=== PATIENT | female | born 2000 | race American Indian/Alaskan Native ===

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

== ENCOUNTER 2022-11-07 18:08 | Emergency (ER) | payer OTHER ==
[2022-11-07] MEDS ORDERED: Cephalexin 500 MG Cap PO ONE ×2 (18:09→20:04)
[2022-11-07] MEDS ORDERED: Acetaminophen 325 MG Tab PO ONE (20:03)
[2022-11-07 20:15] VITALS: BP 124/67; PULSE 94
[2022-11-07] MEDS ORDERED: Cephalexin 500 MG Cap ONE (20:22)
== END 2022-11-07 20:29 | disposition home or self-care (01) ==
LOC: DL.ED 18:08
DX: O23.41 Unspecified infection of urinary tract in pregnancy, first trimester (principal); N39.0 Urinary tract infection, site not specified; O99.891 Other specified diseases and conditions complicating pregnancy; M54.50 Low back pain, unspecified; Z3A.11 11 weeks gestation of pregnancy
CPT/HCPCS: 81001; 99283; A9270

== ENCOUNTER 2023-06-04 01:11 | Inpatient (IN) | payer SELFPAY ==
[2023-06-04 08:55] LABS: HEMATOCRIT 28.7 % (37.0-47.0); HEMOGLOBIN 8.7 g/dL (12.0-16.0); MEAN CORPUSCULAR HEMOGLOBIN 22.1 pg (27.0-34.0); MEAN CORPUSCULAR HGB CONC 30.3 g/dL (33.0-35.0); RED BLOOD CELL COUNT 3.93 10^6/uL (4.2-5.4); WHITE BLOOD CELL COUNT,WBC 8.2 10^3/uL (5.0-10.0)
[2023-06-04 08:57] LABS: AMPHETAMINES,URINE NEGATIVE (NEGATIVE); BARBITURATES,URINE NEGATIVE (NEGATIVE); BENZODIAZEPINE,URINE NEGATIVE (NEGATIVE); MDMA (ECSTASY), URINE NEGATIVE (NEGATIVE); METHADONE,URINE NEGATIVE (NEGATIVE); METHAMPHETAMINES,URINE NEGATIVE (NEGATIVE); OPIATES,URINE NEGATIVE (NEGATIVE); OXYCODONE,URINE NEGATIVE (NEGATIVE); PHENCYCLIDINE,URINE NEGATIVE (NEGATIVE); TCA,URINE NEGATIVE (NEGATIVE)
[2023-06-04] MEDS ORDERED: Misoprostol 25 MCG (1/4 of 100 MCG) Tab VAG ONE (09:03)
[2023-06-04] MEDS ORDERED: Methylergonovine 0.2 MG/1 ML Amp IM PRN (09:18)
[2023-06-04] MEDS ORDERED: Acetaminophen 325 MG Tab PO PRN (09:18)
[2023-06-04] MEDS ORDERED: Lactated Ringers 1,000 ML IV ONE (09:18)
[2023-06-04] MEDS ORDERED: Lidocaine 1% 30 ML SDV INJECT ONE (09:18)
[2023-06-04] MEDS ORDERED: Sodium Chloride 0.9% 10 ML Syringe FLUSH PRN (09:18)
[2023-06-04] MEDS ORDERED: Ondansetron 4 MG/2 ML SDV IVPUSH PRN (09:18)
[2023-06-04] MEDS ORDERED: Misoprostol 400 MCG (4 X 100 MCG TAB) RECTAL PRN (09:18)
[2023-06-04] MEDS ORDERED: Carboprost Tromethamine 250 MCG/1 ML Amp IM PRN (09:18)
[2023-06-04] MEDS ORDERED: Tranexamic Acid 1,000 MG in Sodium Chloride 0.9% 100 ML IV PRN (09:18)
[2023-06-04] MEDS ORDERED: Lactated Ringers 1,000 ML IV SCH (09:30)
[2023-06-04] MEDS ORDERED: Oxytocin/Normal Saline 30 UNIT/500 ML BAG IV SCH (09:30)
[2023-06-04] MEDS: Misoprostol 25 MCG (1/4 of 100 MCG) Tab VAG PRN ×2 (13:28→17:17)
[2023-06-04] MEDS ORDERED: fentaNYL 100 MCG/2 ML SDV IVPUSH PRN (15:21)
[2023-06-04] MEDS ORDERED: Bupivacaine 0.25% 10 ML SDV ONE (22:11)
[2023-06-04] MEDS ORDERED: fentaNYL 100 MCG/2 ML SDV ONE (22:11)
[2023-06-04] MEDS ORDERED: ePHEDrine 50 MG/ML SDV IVPUSH PRN (22:49)
[2023-06-04] MEDS ORDERED: Phenylephrine HCl In 0.9% NaCl 1 MG/10 ML Syringe IVPUSH PRN (22:49)
[2023-06-04] MEDS ORDERED: Ropivacaine 200 MG in Premix Bag 1 BAG EPIDUR SCH (23:00)
[2023-06-05] MEDS ORDERED: Famotidine 20 MG Tab PO PRN (02:29)
[2023-06-05] MEDS ORDERED: Oxytocin 10 Units/1 ML SDV IM PRN (02:29)
[2023-06-05] MEDS ORDERED: Witch Hazel Medicated Pads 100/Jar TOP PRN (02:29)
[2023-06-05] MEDS ORDERED: Benzocaine/Menthol 20%-0.5% Spray 78 GM Cannister TOP PRN (02:29)
[2023-06-05] MEDS ORDERED: Simethicone 80 MG Tab.Chew PO PRN (02:29)
[2023-06-05] MEDS ORDERED: Aluminum Hydroxide/Magnesium Hydroxide/Simethicone Susp 30 ML Cup PO PRN (02:29)
[2023-06-05] MEDS: Ibuprofen 800 MG Tab PO PRN ×2 (03:00→13:50)
[2023-06-05] MEDS: Docusate Sodium 100 MG Cap PO PRN ×2 (08:30→20:40)
[2023-06-05] MEDS: Prenatal Multivitamin with Calcium/Folic Acid/Iron Tab PO SCH (08:30)
[2023-06-06] MEDS: Ibuprofen 800 MG Tab PO PRN (06:51)
[2023-06-06 06:54] LABS: HEMATOCRIT 24.8 % (37.0-47.0); HEMOGLOBIN 7.5 g/dL (12.0-16.0)
[2023-06-06] MEDS: Docusate Sodium 100 MG Cap PO PRN (07:42)
[2023-06-06] MEDS: Prenatal Multivitamin with Calcium/Folic Acid/Iron Tab PO SCH ×2 (07:42→11:25)
[2023-06-06] MEDS ORDERED: Measles, Mumps & Rubella Vaccine 0.5 ML SDV SUBCUT ONE (09:04)
[2023-06-06 09:20] VITALS: PULSE 82
[2023-06-06 11:03] VITALS: BP 128/74
== END 2023-06-06 10:45 | disposition home or self-care (01) | DRG 807 ==
LOC: DL.OB 01:11 → OBSVTOIN 06-05 01:11
PROVIDERS: ADMIT Student in an Organized Health Care Education/Training Program; ATTEND Student in an Organized Health Care Education/Training Program
PROC: 10E0XZZ Delivery of Products of Conception, External Approach (ICD-10-PCS; principal; 2023-06-05)
PROC: 0KQM0ZZ Repair Perineum Muscle, Open Approach (ICD-10-PCS; 2023-06-05)
PROC: 10907ZC Drainage of Amniotic Fluid, Therapeutic from Products of Conception, Via Natural or Artificial Opening (ICD-10-PCS; 2023-06-05)
PROC: 3E0R3BZ Introduction of Anesthetic Agent into Spinal Canal, Percutaneous Approach (ICD-10-PCS; 2023-06-05)
PROC: 00HU33Z Insertion of Infusion Device into Spinal Canal, Percutaneous Approach (ICD-10-PCS; 2023-06-05)
PROC: 3E0P7VZ Introduction of Hormone into Female Reproductive, Via Natural or Artificial Opening (ICD-10-PCS; 2023-06-05)
DX: O99.02 Anemia complicating childbirth (principal); Z37.0 Single live birth; Z3A.39 39 weeks gestation of pregnancy; O66.0 Obstructed labor due to shoulder dystocia; O76 Abnormality in fetal heart rate and rhythm complicating labor and delivery; O70.1 Second degree perineal laceration during delivery; D64.9 Anemia, unspecified
CPT/HCPCS: 36415; 51702; 59409; 80305-QW; 85014; 85018; 85027; 85049; 90471; 90707; A9270-GY; J2405; J2590; J2795; J3490; J7120

== ENCOUNTER 2023-10-16 22:33 | Emergency (ER) | payer MEDICAID ==
[2023-10-16] MEDS: Ketorolac 30 MG/ML SDV IM ONE (23:12)
[2023-10-16] MEDS: Metoclopramide 10 MG Tab PO ONE (23:13)
[2023-10-16] MEDS: diphenhydrAMINE 50 MG Cap PO ONE (23:13)
[2023-10-16 23:31] VITALS: BP 125/78; PULSE 99
== END 2023-10-16 23:45 | disposition home or self-care (01) ==
LOC: DL.ED 22:33
DX: G43.009 Migraine without aura, not intractable, without status migrainosus (principal)
CPT/HCPCS: 96372; 99282; 99283; A9270; J1885; Q0163